=== PATIENT | male | born 1975 | race Caucasian/White ===

== ENCOUNTER 2017-02-12 20:02 | Emergency (ER) | payer MEDICAID ==
[2017-02-13 01:28] VITALS: BP 149/31
== END 2017-02-13 01:28 | disposition home or self-care (01) ==
LOC: ED 20:02
DX: H66.92 Otitis media, unspecified, left ear (principal); J06.9 Acute upper respiratory infection, unspecified; I10 Essential (primary) hypertension
CPT/HCPCS: J0696